=== PATIENT | female | born 1995 | race Caucasian/White ===

== ENCOUNTER 2020-05-12 00:11 | Emergency (ER) | payer MEDICAID ==
[~2020-05-12] VITALS: Ht 165.1 cm; Wt 61.2 kg
[2020-05-12 00:28] VITALS: BP 125/69
[2020-05-12 01:39] LABS: Basophils # (auto) 0 10 ^3/uL (0-0.2); Basophils % (auto) 0.5 % (0.0-2.0); Eosinophils # (auto) 0 10 ^3/uL (0-0.8); Eosinophils % (auto) 0.2 % (0.0-7.0); Hematocrit 33.6 % (36.0-46.0); Hemoglobin 11.5 g/dL (12.2-16.2); Lymphocytes # (auto) 1.3 10 ^3/uL (0.4-5.4); Lymphocytes % (auto) 19.8 % (10.0-50.0); Mean Corpuscular Hemoglobin 31.4 pg (28.0-32.0); Mean Corpuscular Hgb Conc. 34.3 g/dL (32.0-36.0); Mean Corpuscular Volume 91.5 fL (80.0-100.0); Monocytes # (auto) 1.1 10 ^3/uL (0-1.3); Monocytes % (auto) 17.9 % (0.0-12.0); Neutrophils # (auto) 3.9 10 ^3/uL (1.6-8.6); Neutrophils % (auto) 61.6 % (37.0-80.0); Nucleated Red Blood Cells % 0.1 %; Platelet Count (auto) 213 10^3/uL (140-450); Red Blood Cells 3.67 10^6/uL (4.0-5.20); Red Cell Distribution Width 14.2 % (11.8-14.3); White Blood Cell 6.3 10^3/uL (4.4-10.8)
[2020-05-12 01:49] LABS: Urine Bacteria FEW /hpf (None Seen); Urine Blood 3+ /uL (Negative); Urine Hyaline Cast FEW /lpf (0 - 2); Urine Mucus FEW (None Seen); Urine Specific Gravity 1.017 (1.001-1.035); Urine WBC 46 /hpf (0 - 5); Urine WBC Clumps PRESENT /hpf (None Seen)
[2020-05-12 02:00] LABS: Albumin 3.3 g/dL (3.4-5.0); BUN/Creatinine Ratio 15.6; Calcium 9.1 mg/dL (8.5-10.1)
[2020-05-12 02:03] LABS: Bilirubin, Total 0.3 mg/dL (0.2-1.0); Total Protein 8.1 g/dL (6.4-8.2)
[2020-05-12 02:07] LABS: Potassium 2.9 mmol/L (3.5-5.1)
[2020-05-12] MEDS ORDERED: SODIUM CHLORIDE 0.9% 1,000 ML IV ONE (02:15)
[2020-05-12] MEDS ORDERED: POTASSIUM EFFERVESENT TAB 25 MEQ PO ONE (02:15)
[2020-05-12] MEDS ORDERED: CIPROFLOXACIN 400MG/200ML 200 ML IV ONE (02:15)
[2020-05-12 02:31] LABS: Alcohol, Urine < 3.0 mg/dL (0-10); Amphetamine Screen, Urine POSITIVE (NEGATIVE); Barbiturate Scree,Urine NEGATIVE (NEGATIVE); Benzodiazephine Screen, Urine NEGATIVE (NEGATIVE); Cannabinoid Screen, Urine NEGATIVE (NEGATIVE); Cocaine Screen, Urine NEGATIVE (NEGATIVE); Opiate Scree,Urine POSITIVE (NEGATIVE); Phencyclidine Screen, Urine NEGATIVE (NEGATIVE)
== END 2020-05-12 02:55 | disposition left against medical advice (07) ==
LOC: ER 00:11
DX: O23.01 Infections of kidney in pregnancy, first trimester (principal); O9A.511 Psychological abuse complicating pregnancy, first trimester; O99.331 Smoking (tobacco) complicating pregnancy, first trimester; O26.891 Other specified pregnancy related conditions, first trimester; Z3A.11 11 weeks gestation of pregnancy
CPT/HCPCS: 36415; 80053; 80307; 81001; 81025; 84702; 85025; 96365; 99284; J0744